=== PATIENT | male | born 1985 | race American Indian/Alaskan Native ===

== ENCOUNTER 2021-08-17 09:01 | Outpatient (CLI) | payer OTHER ==
--- NOTE | 2021-08-17 16:04 | XRay Report ---
Lumbar spine 3 views INDICATION: Back pain FINDINGS: Alignment appears normal. No subluxation is seen. Mild facet changes are noted. No compress ion fracture. Visualized sacrum appears normal. Signer Name: Lew Fuller MD Signed: 08/17/2021 3:59 PM Workstation Name: [id number]
--- NOTE | 2021-08-17 16:20 | XRay Report ---
BILATERAL KNEE, 6 VIEWS INDICATION / CLINICAL INFORMATION: BILATERAL KNEE PAIN. COMPARISON: None available. FINDINGS: Right knee: No significant osseous abnormality. Joint spaces are fairly well preserved without apprec iable degenerative change. Alignment is normal. No joint effusion. Left knee: Minimal degenerative changes present with very slight loss of joint space in the lateral c ompartment. No joint effusion. Normal alignment. No other significant osseous abnormality noted. IMPRESSION: 1. Minimal degenerative change in the left knee. 2. No significant osseous abnormality in the right knee. Signer Name: Jacinta Hyatt MD Signed: 08/17/2021 4:16 PM Workstation Name: [id number]
== END 2021-08-17 09:02 | disposition home or self-care (01) ==
LOC: XRAY 09:01
PROVIDERS: ATTEND Internal Medicine
DX: M17.12 Unilateral primary osteoarthritis, left knee (principal); M47.816 Spondylosis without myelopathy or radiculopathy, lumbar region
CPT/HCPCS: 72100